=== PATIENT | male | born 1965 | race African-American/Black ===

== ENCOUNTER 2023-05-23 14:50 | Emergency (ER) | payer BC ==
[2023-05-23 14:59] VITALS: BP 181/92; BMI 28.1
[2023-05-23 15:02] VITALS: PULSE 69; RESP 18; TEMP 98.2
[2023-05-23] MEDS ORDERED: CARBAMIDE PEROXIDE 6.5% OTIC 15 ML BOTTLE AD ONE (15:57)
[2023-05-23] MEDS ORDERED: valACYclovir HCL 500 MG TABLET (FP) PO ONE (15:58)
[2023-05-23] MEDS ORDERED: predniSONE 20 MG TABLET (UD) PO ONE (15:58)
[2023-05-23] MEDS ORDERED: predniSONE 20 MG TABLET (UD) ONE (16:02)
[2023-05-23] MEDS ORDERED: valACYclovir HCL 500 MG TABLET (FP) ONE (16:02)
== END 2023-05-23 17:33 | disposition home or self-care (01) ==
LOC: JER 14:50
DX: G51.0 Bell's palsy (principal); H61.21 Impacted cerumen, right ear
CPT/HCPCS: 82962; 93005; 93010; 99284-25